=== PATIENT | female | born 1970 | race Caucasian/White ===

== ENCOUNTER 2019-01-17 09:48 | Emergency (ER) | payer OTHER ==
[~2019-01-17] VITALS: Ht 167.6 cm; Wt 90.3 kg
[2019-01-17] MEDS ORDERED: AUGMENTIN 875-1 EACH PO (09:59)
[2019-01-17] MEDS ORDERED: IMITREX50 MG PO (10:00)
--- OUTSIDE RECORDS SUMMARY | 2019-01-17 13:40 | XMS ---
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 Earlene VISIT COUNT (12 MO.) [address] TOTAL 3 NOTE: Visits indicate total known visits. ED/C VISIT TRACKING (12 MO.) 01/17/2019 09:49 MARJAN Ramos TYPE: Emergency COMPLAINT: - BP PROBLEMS 01/15/2019 21:19 [facility] TYPE: Emergency DIAGNOSES: - Headache - high blood pressure ,headache - Headache - Hypertension 08/31/2018 10:24 [facility] TYPE: Emergency DIAGNOSES: - Chest Pain - Chest pain, unspecified INPATIENT VISIT TRACKING (12 MO.) No inpatient visits to display in this time frame [email or web address]
--- NOTE | 2019-01-17 18:46 | EKG ---
[facility] [address] [facility] [place] [address] Signed Normal sinus rhythm Normal ECG No previous ECGs available Confirmed by YONATAN HERNANDEZ DO ([id number]) on 01/17/2019 6:45:42 PM Electronically Signed By: YONATAN HERNANDEZ DO 01/17/19 1846 PATIENT NAME: MAY GE Electrocardiogram DATE OF : 74 PHYSICIAN: YONATAN HERNANDEZ DO REPORT #: [id number] REPORT IS CONFIDENTIAL AND NOT TO BE RELEASED WITHOUT AUTHORIZATION
== END 2019-01-17 13:32 | disposition home or self-care (01) ==
LOC: ED 09:48
DX: I10 Essential (primary) hypertension (principal); F41.9 Anxiety disorder, unspecified; G43.909 Migraine, unspecified, not intractable, without status migrainosus; Z88.1 Allergy status to other antibiotic agents; Z79.899 Other long term (current) drug therapy
CPT/HCPCS: 71045; 80053; 84484; 85025; 93005; 93010; 99283-25